=== PATIENT | male | born 1985 | race Caucasian/White ===

== ENCOUNTER → 2020-05-03 15:16 | Outpatient (BNVA) | payer BC, SELFPAY | PROVIDERS: Visit Provider Urology | DX: Z76.89 Persons encountering health services in other specified circumstances (principal) ==

== ENCOUNTER 2024-06-30 09:24 | Outpatient (AMB) | payer BC, SELFPAY ==
--- NOTE | 2024-06-30 09:28 | A.OFFVIS_ITS ---
Intake Visit Reasons: [employer]- tingling/pain in middle of the back Intake Note: Milton is a 39 year old male who presents today for a new patient visit for an evaluation for pain in his mid-back. The patient states the pain started about a couple years. He describes it as nerve pain with a consistent itching feeling. He states he does not remember injuring his back. He states the pain radiates up and down his back, especially on the left side. 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 He has been stretching and working on his posture. States he has tried P.T in the past and it went well. States he takes flexeril as needed. MRI done in the past but he doesn't remember when. Patient referred by Dr Maya from [facility]. Allergies No Known Allergies [No Known Allergies*] Allergy (Unverified 06/30/24 09:30) Medication List - Last Reconciled 06/30/24 by Adela Villarreal RN cyclobenzaprine 10 mg PO BEDTIME HPI Comments Details: Points to mid thoracic pain, tingling/itching/burning sensation, does not remember inciting injury. At least 2 years. Does not radiate in the area, sometimes goes up to shoulder and shoulder blade. Does not think thoracic imaging has been done. He has not done any PT for this pain. Does not think he had rash or shingles related to it. Review of Systems Const All systems reviewed & are unremarkable except as noted in HPI and below Physical Exam Constitutional: Patient appears to be in no acute distress, well nourished and well developed. Patient was appropriately conversant and oriented. Good historian. MSK: Inspection reveals appropriate head and neck positioning. No specific abnormalities found on inspection of the spine and all extremities. No pain with palpation over the cervical, thoracic and lumbar spinous processes or facets. There is some increased sensation, but not tender, on paraspinals, both sides of T6 and T7 level. Cervical and Lumbar ROM was full. No scapular winging. Neurological: Mood appears normal, good affect, and appropriate for the circumstances. Nonfocal. Gait is non-antalgic without loss of balance. Results Reviewed Results Reviewed: I reviewed records from the following: [place] [facility] Assessment & Plan Assessment & Plan (1) Thoracic back pain: Code(s): M54.6 - Pain in thoracic spine Category: Medical Qualifiers: Chronicity: chronic Back pain laterality: midline Qualified Code(s): M54.6 - Pain in thoracic spine; G89.29 - Other chronic pain Plan Suspect chronic paraspinal strain at T6 and T7 levels. 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 Checking thoracic x-rays to do a to rule out chronic fracture or disc space loss. Although low suspicion for these. Assessment and plan discussed with patient, and patient was agreeable. All questions were answered thoroughly. Follow up 2 months or after PT. Hali Lopez MD, ALFONSO Board Certified, [place] [employer] and Rehabilitation (ABPMR) Board Certified, [place] [employer] Electro[employer] (ABEM) Orders: Orders XR thoracic spine 3V Today M54.6 - Pain in thoracic spine PT Evaluation and Treatment Today M54.6 - Pain in thoracic spine Coding Level of Care Code New Pt Level 3 (73551) Diagnoses Chronic midline thoracic back pain M54.6; G89.29 Chronicity: chronic Back pain laterality: midline
--- OUTSIDE RECORDS SUMMARY | 2024-06-30 10:17 | XMS_ITS | Patient Health Record ---
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 Name Role Phone Carmela Don Primary Care Provider Mandy Saunders Unavailable [phone] Allergies Allergen (clinical drug ingredient) Drug/Non Drug Allergy documented on EMR Reaction Allergy Type Onset Date Status Seasonale Unknown Drug Allergy Active Reason For Referral No Information Medications Medication SIG (Take, Route, Frequency, Duration) Notes Start Date End Date Status Medrol 4 MG as directed Orally 12/27/2020 Active Claritin PRN Active Wellbutrin Active Immunizations Vaccine Route Administration Date Status Comme nts COVID-19 Pfizer BioNTech Vaccine Unknown 07/04/2020 Administered Second Dose: 07/25/2020 Social History Tobacco Use: Social History Observation Description Date Details (start date - stop date) Former Smoker NA - NA Tobacco Use/Smoking Question Answer Notes Are you a: former smoker Additional Findings: Tobacco Non-User Current no n-smoker Alcohol Screen Question Answer Notes Did you have a drink containing alcohol in the p ast year? Yes Points 0 Interpretation Negative Tobacco use other than smoking: Question Answer Notes Are you an other tobacco user? No Problems Problem Type SNOMED Code ICD Code Onset Dates Problem Status W/U Status Risk Notes Problem Localized, primary osteoarthritis of the ankle and/or foot (333533161) Primary osteoarthrit is, right ankle and foot (M19.071) Active confirmed Plan Of Treatment Pending Test Test Name Order Date X ray : Foot, right 3V 09/14/2018 X ray : Foot, right 3V 11/15/2019 X ray : Foot, right 3V 12/27/2020 Insurance Providers Payer Name Payer Address Payer Phone Subscriber Number Group Number Insured Name Patient Relationship to Insured Coverage Start Date Coverage End Date [employer] [address] [place] [address] [id number] Milton Kasper Self - patient is the insured Medical (General) History Medical History History ICD Code Back,Hip,and Knee pain Broken bones Surgical History Surgery Date(Month/Year) wisdom teeth removal 2001
--- OUTSIDE RECORDS SUMMARY | 2024-06-30 10:18 | XMS_ITS | Data Portability ---
Author Organization [facility], , [facility] Address [address] [place] [address] Care Team Providers Care Replacer Name Role Phone VALERIE MILLER Primary Care Provider Assessment Encounter Date Assessment Date Assessment LastModified by Organization Details LastModified Time 04/06/2023 04/06/2023 Patient agreed t o this visit via a secure telehealth platform. Patient understands this is a scheduled visit and the usual procedures with regard to billing and confidentiality apply. Patient was notified that the provider location is Patient location: home During the visit the patient? s medical history and medical record were reviewed. The patient was notified to call our office for worsening or urgent symptoms. [email or web address] Not available 04/06/2023 14:53:29 Plan of Treatment Reminders Order Date Submit Date Provider Last Modified By Organization Details Last Modified Time Details Appointments LAB Follow-U p 2024 08:05A M [facility] Lab Not available Not available Not available Wellness Visit 30 2024 10:15A M VALERIE MILLER PA-C Not available Not available Not available Lab lipid panel, serum 2023 024 [facility], [address] [place], [address], 11/22/2023 13:50:40 BMP, serum or plasma 2023 024 [facility], [address] [place], [address], 11/22/2023 13:50:39 Referral physical therapis t referral 2024 025 [facility], [address] [place], [address], 04/27/2024 16:40:31 physical medicine and rehabili tation referral - mid to low back pain, spasms, ongoing. 2023 024 [facility], [address] [place] [address] [place], [address], 11/18/2023 08:25:25 Procedures colonosc opy procedur e (PROC) - requesti pasquale Kaycee Bond ( sees her); Fhx colon cancer (pat GF) [address] [facility], [address] [place], [address], 11/24/2023 09:33:37 Surgeries None recorded . Imaging US, retroper itoneum - urinary urgency 2023 024 [facility] ([facility]), [address] , [place], [address], 11/22/2023 14:36:19 Medication Orders cycloben zaprine 10 mg tablet 2024 025 [id number], [address] [place], [place], [id number], 04/27/2024 08:41:04 valacycl ovir 500 mg tablet [address] [facility], [address] [place], [place], [id number], 04/27/2024 08:09:01 cycloben zaprine 10 mg tablet [address] [facility]77, [address] [place], [place], [id number], 04/27/2024 08:10:20 nicotine (polacri jewel) 4 mg buccal lozenge 2021 022 [facility]23, [address] [place], [place], [id number], 04/21/2022 10:33:11 Patient Targets Encounter Date Encounter Id Patient Goals Patient Target Last Modified By Organization Details Last Modified Time I believe he has a mild case of UT and will observe [email or web address] Not available 04/06/2023 15:43:14 Patient Instructions Encounter Date Encounter Id Patient Instructions Last Modified By Organization Details Last Modified Time 01/08/2022 [id number] deciding about using medicines to quit smoking Not available 01/08/2022 18:28:21 Quitting Tobacco : Care Instructions Not available 01/08/2022 18:28:22 Counseling done {{Patient not ready to quit Contemplating quitting Tapering Cigarettes* signed up for support prescripti on for stop smoking medication given}} {{Patient not ready to quit Contemplating quitting Tapering Cigarettes signed up for support prescripti on for stop smoking medication given}} Goal for follow up visit {{adding exercise regular meals stress management improvi ng sleep therapist identifying sponsor}} {{adding exercise regular meals stress management improvi ng sleep therapist identifying sponsor}} {{adding exercise regular meals stress management improvi ng sleep therapist identifying sponsor}} My Health To Do List {{go to Cortica[employer]BitWall or call sig n up for yoel text 2 quit or other stop smoking yoel contact smokefree.gov}} {{go to [email or web address] or call sig n up for yoel text 2 quit or other stop smoking yoel contact smokefree.gov}} {{go to [email or web address] or call sig n up for yoel text 2 quit or other stop smoking yoel contact smokefree.gov}} Not available 01/10/2022 09:24:21 04/21/2022 [id number] Well Visit, Ages 18 to 65: Care Instructions Not available 04/21/2022 10:49:16 It was a pleasur e to see you today! After a discussion of treatment options, which included consideration of best practices, patient preferences, and the patient? s individual lifestyle and treatment goals, as well as consideration and attempted mitigation of any barriers to meeting the patient? s goals, the following treatment plan and objectives were adopted: - Remember to drink plenty of water (1-2 liters a day), keep moving (30 minutes moderate exercise every day), and eat a diet high in plant materials (fruit, veggies, nuts, and beans), and minimal carbohydrates (starches and sugars) and red meats. Review the website [employer] to get more information on the Mediterranean diet, a heart healthy eating plan. - Maintain 1200 mg of calcium from food sources daily. Vitamin D 800-1000 units daily can help the absorption of calcium into your bones. - Do regular skin checks and wear sun screen for anytime in the sun greater than 10 minutes. - Regular eye and dental exams - Labs: will schedule fasting - Immunizations: UTD - HCP in chart. - PHA in 1 year Not available 04/21/2022 10:58:38 11/15/2023 [id number] It was a pleasur e to see you today! After a discussion of treatment options, which included consideration of best practices, patient preferences, and the patient? s individual lifestyle and treatment goals, as well as consideration and attempted mitigation of any barriers to meeting the patient? s goals, the following treatment plan and objectives were adopted: - Remember to drink plenty of water (1-2 liters a day), keep moving (30 minutes moderate exercise every day), and eat a diet high in plant materials (fruit, veggies, nuts, and beans), and minimal carbohydrates (starches and sugars) and red meats. Review the website [employer] to get more information on the Mediterranean diet, a heart healthy eating plan. - Maintain 1200 mg of calcium from food sources daily. Vitamin D 800-1000 units daily can help the absorption of calcium into your bones. - Do regular skin checks and wear sun screen for anytime in the sun greater than 10 minutes. - Regular eye and dental exams - Labs: as above - Immunizations: reviewed - UTD - HCP in chart. - PHA in 1 year Not available 11/15/2023 12:06:42 Reason for Referral Physical Medicine And Rehabi litation Referral for Low back pain mid to low back pain, spasms, ongoing. Referring Physician: Valerie Maya, Family Medicine, Encounter Date: 11/15/2023 Physical Therapist Referral for Low back pain Referring Physician: Mandy Salinas [facility], Encounter Date: 04/27/2024 Results Created Date Observation Date Name Description Value Unit Range Abnormal Flag Note LastModifiedBy Organization Detail LastModifiedTime 01/16/20 22 01/16/2022 SEMEN VASYL SIS color WHITE, LINDSAY, [facility] white, lindsay, opales cent Not Available [facility] (Outpatient) [address] [place] [address], [address], 01/16/2022 12:45:50 01/16/20 22 01/16/2022 SEMEN VASYL SIS clarity CLOUDY Not Available [facility] (Outpatient) [address] [place], [address], 01/16/2022 12:45:50 01/16/20 22 01/16/2022 SEMEN VASYL SIS sperm agglutinatio n isolat ed: less than 10 sperma tozoa per agglut inate, many free sperma tozoa Not Available [facility] (Outpatient) [address] [place], [address], 01/16/2022 12:45:50 01/16/20 22 01/16/2022 SEMEN VASYL SIS semen viscosity NORMAL normal Not Available [facility] (Outpatient) [address] [place], [address], 01/16/2022 12:45:50 01/16/20 22 01/16/2022 SEMEN VASYL SIS semen pH 8.0 Not Available [facility] (Outpatient) [address] [place] [address], [address], 01/16/2022 12:45:50 01/16/20 22 01/16/2022 SEMEN VASYL SIS sperm concentratio n 253.0 ganesh on/mL 15.0-9 99.0 Not Available [facility] (Outpatient) [address] [place], [address], 01/16/2022 12:45:50 01/16/20 22 01/16/2022 SEMEN VASYL SIS sperm motility 70 % 50-100 Not Available [facility] (Outpatient) [address] [place], [address], 01/16/2022 12:45:50 01/16/20 22 01/16/2022 SEMEN VASYL SIS sperm morphology 8 Paola l refer ence inter staci is great er than or equal to 4%. Morph ology is based on WHO Manua l for Exami natio n and Proce ssing of Human Semen , 5th editi on2009. Not Available [facility] (Outpatient) [address] [place], [address], 01/16/2022 12:45:50 01/16/20 22 01/16/2022 SEMEN VASYL SIS semen container PLASTI C Not Available [facility] (Outpatient) [address] [place], [address], 01/16/2022 12:45:50 01/16/20 22 01/16/2022 SEMEN VASYL SIS days of abstinence 5 days Not Available [facility] (Outpatient) [address] [place], [address], 01/16/2022 12:45:50 01/16/20 22 01/16/2022 SEMEN VASYL SIS collection problems None Not Available [facility] (Outpatient) [address] [place], [address], 01/16/2022 12:45:50 01/16/20 22 01/16/2022 SEMEN VASYL SIS semen volume 2.7 mL 2-6 Not Available [facility] (Outpatient) [address] [place], [address], 01/16/2022 12:45:50 01/16/20 22 01/16/2022 SEMEN VASYL SIS semen transport None Not Available [facility] (Outpatient) [address] [place] [address], [address], 01/16/2022 12:45:50 11/22/19 24 11/22/2023 BASIC METAB OLIC PANEL glucose 97 mg/dL 70-100 Not Available [address], [address], 11/22/2023 13:50:39 11/22/19 24 11/22/2023 BASIC METAB OLIC PANEL BUN 8 mg/dL 7-18 Not Available [address], [address], 11/22/2023 13:50:39 11/22/19 24 11/22/2023 BASIC METAB OLIC PANEL creatinine 0.9 mg/dL 0.8-1. 3 Not Available [address], [address], 11/22/2023 13:50:39 11/22/19 24 11/22/2023 BASIC METAB OLIC PANEL B/C 8.9 ratio Not Available [address], [address], 11/22/2023 13:50:39 11/22/19 24 11/22/2023 BASIC METAB OLIC PANEL GFR >=60ML /MIN mL/mi n normal >=60m L/min - Paola l or midly reduc ed <60mL /min- Decre ased kidne y funct ion <15mL /min - Kidne y failu re [facility] calcu lates estim ated Glome rular Filtr ation Rate (eGFR ) using the Chron ic Kidne y Disea se Epide miolo gy Colla borat ion (CKD- EPI) Equat ion (Marck r et. al 2020) as recom luis d by the Natio nal Kidne y Found ation . eGFR is based on age, serum creat inine , and sex. CKD-E PI does not calcu late eGFR by race, does not apply to child tequila (age <18 years ), and shoul d not be used in pregn shyla. Not Available [address], [address], 11/22/2023 13:50:39 11/22/19 24 11/22/2023 BASIC METAB OLIC PANEL sodium 142 mmol/ L 136-14 5 Not Available [address], [address], 11/22/2023 13:50:39 11/22/19 24 11/22/2023 BASIC METAB OLIC PANEL potassium 5.4 mmol/ L 3.5-5. 1 high Not Available [address], [address], 11/22/2023 13:50:39 11/22/19 24 11/22/2023 BASIC METAB OLIC PANEL chloride 105 mmol/ L 96-107 Not Available [address], [address], 11/22/2023 13:50:39 11/22/19 24 11/22/2023 BASIC METAB OLIC PANEL anion gap 8.0 5.0-15 .0 Not Available [address], [address], 11/22/2023 13:50:39 11/22/19 24 11/22/2023 BASIC METAB OLIC PANEL CO2 29 mmol/ L 21-32 Not Available [address], [address], 11/22/2023 13:50:39 11/22/19 24 11/22/2023 BASIC METAB OLIC PANEL calcium 8.9 mg/dL 8.5-10 .3 Not Available [address], [address], 11/22/2023 13:50:39 11/22/19 24 11/22/2023 LIPID PANEL cholesterol 205 mg/dL <200 mg/dl Malissa able 200-2 39 mg/dl Borde rline High >240 mg/dl High Not Available [address], [address], 11/22/2023 13:50:40 11/22/19 24 11/22/2023 LIPID PANEL triglyceride s 100 mg/dL <150 mg/dL Paola l 150-1 99 mg/dL Borde rline High 200-4 99 mg/dL High >500 mg/dL Very High Not Available [address], [address], 11/22/2023 13:50:40 11/22/19 24 11/22/2023 LIPID PANEL direct HDL 44 mg/dL <40 mg/dl - Major Risk for CHD >60 mg/dl - Negat aquiles Risk for CHD Not Available [address], [address], 11/22/2023 13:50:40 11/22/19 24 11/22/2023 LDL - CALCU LATED LDL - calculated 141.0 RISK CATEG ORY LDL GOAL _ CHD or CHD Risk Equiv alent s <100 mg/dl (10-y ear risk >20%) 2+ Risk Facto rs <130 mg/dl (10-y ear risk <= 20%) 0-1 Risk Facto r? <160 mg/dl ? Almos t all peopl e with 0-1 risk facto r have a 10 year risk <10%, thus 10 year risk asses ment in peopl e with 0-1 risk facto r is not neces matthew. Not Available [address], [address], 11/22/2023 13:50:41 03/08/20 24 03/09/2024 ANATO SLIM PATHO LOGY path report [facility] [address] [place] [address] Lab Direc tor: Chris reed MD Surgi red Patho logy Repor t Acces yoandy #: [id number] FINAL PATHO LOGIC DIAGN OSIS: ASCEN DING COLON , POLYP : Adeno matou s polyp . Roxanna ctron icall y Sylvie d Out By Lumin theodora bullock MD By his/h er signa cayetanoe above , the patho logis t liste d as deysi stanton the Final Diagn osis certi fies that he/sh e has perso latasha revie wed this case and confi rmed or corre cted the diagn osis. 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 DN 03/08 Gross ing Staff : [facility] Patie nt Name: MILTON DAWSON : 1984 (Age: 38) Sex: M 4 Insti tutio n: [facility] Locat ion: [facility] Date of Opera tion: 03/08 Date of Acces yoandy: 03/08 Repor dominic: 03/09 15:05 Resul ts To: Johnny maciel MD [facility] Anya Woods Not Available [facility] (Outpatient) [address] [facility], [place], [address], 03/09/2024 16:13:34 11/22/19 24 11/22/2023 US, retro perit oneum CLINIC AL HISTOR Y: Urgenc y TECHNI QUE: 2D sonogr aphy of the kidney s and bladde r. COMPAR ORLANDO: None. FINDIN GS: Right kidney 4.8 x 10.7 cm The right kidney is normal in echote xture. There are no solid masses , stones , or hydron ephros is. Left kidney 5.7 x 10.7 cm The left kidney is normal in echote xture. There are no solid masses , stones , or hydron ephros is. Ureter al jets are visual ized bilate rally. The bladde r is normal in appear ance. The prevoi d bladde r volume is 471.9 mL. The post void bladde r volume is 16.0 mL. The prosta te gland is 3.6 x 3.4 x 3.6 cm. Measur ement accura cy is limite d by shadow ing. IMPRES YOANDY: 1. Unrema rkable examin ation of the kidney s and bladde r. 2. 16.0 mL postvo id residu al. Readin g Physic lelia: Shanti Birmingham ms [facility]) [address] , [place], [address], 11/28/2023 11:04:55 Result Notes None recorded. Problems Name Problem SNOMED Code Status Onset Date Resolution Date Notes Provider Name and Address Organization Details Recorded Time Sinusiti s 72628664 Completed 02/23/2017 Izabel Hoang NP [address] [place] [address], [phone] , [facility], [place] 7 08:26:49 Allergic rhinitis 98392442 Active 2016 Maribel Montalvo NP [address] [place] [address], [phone] , [facility], [place] 2 18:13:36 Tobacco user 778120054 Completed 201606/10/2021 AGUILAR Mcclain [address] [place] [address], [address] , [facility], [place] 2 15:28:02 Nicotine dependen ce 33237071 Completed 201706/10/2021 AGUILAR Mcclain [address] [place] [address], [address] , [facility], [place] 2 15:28:00 Low back pain 351683726 Active 2021 chronic on/off with sciatica Maribel Montalvo, MARTIN [address] [place], [address] , [facility], [place] 2 18:13:36 Smoker 63189452 Active 2021 Quit 12/22/21, restarte d Feb 2022. AGUILAR Mcclain [address] [place], [address] , [facility], [place] 3 10:42:06 Mild recurren t major depressi on 41203135 Active 2022 AGUILAR Mcclain [address] [place], [address] , [facility], [place] 3 10:40:12 Problem Notes None recorded. Procedures Surgical History Date Name Laterality Status Provider Name and Address Organization Details Recorded Time 04/27/19 Smoking cessation counseling completed AGUILAR Mejia [address] [place] [address], [phone], [facility], [place] 04/27/2024 08:23:31 06/11/19 86292: Therapeutic Exercise completed Irlanda Biggs, PT [address] [place], [address], [facility], [place] 06/11/2020 18:25:35 06/11/19 21 [address]402: Manual Therapy completed Irlanda Biggs, PT [address] [place], [address], [facility], [place] 06/11/2020 18:25:40 05/30/19 21 [address]: Therapeutic Exercise completed Irlanda Biggs, PT [address] [place], [address], [facility], [place] 06/02/2020 13:37:49 05/30/19 21 79045: Manual Therapy completed Irlanda Biggs, PT [address] [place], [address], [facility], [place] 06/02/2020 13:37:54 05/30/19 21 82218: Ultrasound (1:1) completed Irlanda Biggs, PT [address] [place], [address], [facility], [place] 06/02/2020 13:38:08 02/08/20 21 70684: Therapeutic Exercise completed Irlanda Biggs, PT [address] [place], [address], [facility], [place] 05/27/2020 16:35:36 05/27/19 21 03246: Manual Therapy completed Irlanda Biggs, PT [address] [place], [address], [facility], [place] 05/27/2020 16:35:42 05/27/19 21 15448: Ultrasound (1:1) completed Irlanda Biggs, PT [address] [place], [address], [facility], [place] 05/27/2020 16:35:54 05/24/19 21 33634: Therapeutic Exercise completed Irlanda Biggs, PT [address] [place], [address], [facility], [place] 05/24/2020 08:26:48 05/24/19 21 56482: Ultrasound (1:1) completed Irlanda Biggs, PT [address] [place], [address], [facility], [place] 05/24/2020 08:27:02 05/21/19 21 38763: Therapeutic Exercise completed Irlanda Biggs, PT [address] [place], [address], [facility], [place] 05/21/2020 17:01:10 05/21/19 21 34147: Manual Therapy completed Irlanad Biggs, PT [address] [place], [address], [facility], [place] 05/21/2020 17:01:16 05/21/19 21 14247: Ultrasound (1:1) completed Irlanda Bgigs, PT [address] [place], [address], [facility], [place] 05/21/2020 17:01:26 05/16/19 21 45301: Therapeutic Exercise completed Irlanda Biggs, PT [address] [place], [address], [facility], [place] 05/17/2020 16:38:42 05/16/19 21 68744: Manual Therapy completed Irlanda Biggs, PT [address] [place], [address], [facility] 05/17/2020 16:38:48 05/16/19 90583: Ultrasound (1:1) completed Irlanda Biggs, PT [address] [place], [address], [facility] 05/17/2020 16:39:00 05/14/19 [address]32: Therapeutic Exercise completed Irlanda Biggs, PT [address] [place], [address], [facility] 05/15/2020 13:10:21 05/14/19 11107: Manual Therapy completed Irlanda Biggs, PT [address] [place], [address], [facility], [place] 05/15/2020 13:10:36 05/14/19 40222: Ultrasound (1:1) completed Irlanda Biggs, PT [address] [place], [address], [facility], [place] 05/15/2020 13:10:56 05/08/19 80013: Therapeutic Exercise completed Irlanda Biggs, PT [address] [place], [address], [facility], [place] 05/08/2020 09:07:25 05/08/19 86309: Manual Therapy completed Irlanda Biggs, PT [address] [place], [address], [facility], [place] 05/08/2020 09:07:32 05/08/19 27817: Ultrasound (1:1) completed Irlanda Biggs, PT [address] [place], [address], [facility], [place] 05/08/2020 09:07:46 05/06/19 64692: Therapeutic Exercise completed Irlanda Biggs, PT [address] [place], [address], [facility], [place] 05/12/2020 12:48:01 05/06/19 25115: Manual Therapy completed Irlanda Biggs, PT [address] [place], [address], [facility], [place] 05/12/2020 12:48:16 05/06/19 21 29786: Ultrasound (1:1) completed Irlanda Biggs, PT [address] [place], [address], [facility], [place] 05/12/2020 12:48:31 05/03/19 21 Physical Activity Counselling completed Irlanda Biggs, PT [address] [place], [address], [facility], [place] 05/03/2020 10:57:10 05/03/19 21 80989: PT Eval Low Complexity completed Irlanda Biggs, PT [address] [place], [address], [facility], [place] 05/03/2020 10:57:05 04/27/19 20 Smoking cessation counseling completed Eleanor Astudillo NP [address] [place], [address], [facility], [place] 04/27/2019 13:49:08 04/27/19 20 Carbon Monoxide Testing completed Timbo Mason [facility] 04/27/2019 13:37:07 10/12/19 19 Smoking cessation counseling completed Ayde Estrada [facility] 10/11/2018 11:24:30 02/24/20 17 Smoking cessation counseling completed Eleanor Reeves [facility] 02/23/2017 07:49:07 04/22/19 17 Smoking cessation counseling completed Leighann Guzman [facility] 04/22/2016 08:01:20 04/22/19 17 POC Flu Testing completed Leighann Guzman [facility] 04/22/2016 08:11:34 07/11/19 15 Smoking cessation counseling completed Tonie Collins [facility] 07/10/2014 15:17:24 06/24/19 15 Mood Disorder Questionnaire (MDQ) completed Mulugeta Corcoran MD [address] [place], [address], [facility], [place] 06/23/2014 14:03:48 Imaging Results Imaging Date Name Status LastModified by Organization Details LastModified Time 11/22/2023 US, retroperitoneum completed [facility] [address], [place], [address], 11/28/2023 11:04:55 Procedure Notes None recorded. Medical Equipment None Reported. Allergies No known drug allergies Medications Name Sig Start Date Stop Date Status Note LastModified by Organization Details LastModified Time cyclobenz aprine 10 mg tablet Take 1 tablet every day by oral route at bedtime. active Not Available Not Available No t Available amoxicill in 500 mg capsule TAKE ONE CAPSULE BY MOUTH 3 TIMES A DAY active Not Available Not Available No t Available methocarb yesi 500 mg tablet TAKE 1 TABLET BY MOUTH 2 TIMES A DAY NEEDED FOR PAIN AND MUSCLE TIGHTNES S 04/27 completed Pt not taking 04/27/24 MW Not Available Not Available Not Available bupropion HCl SR 150 mg tablet,12 hr sustained -release TAKE 1 TABLET DAILY FOR 3 DAYS THEN INCREASE TO 1 TABLET BY MOUTH TWICE DAILY 06/16 completed not taking 06/10/21 sf, not taking 06/16/21 [place] Not Available Not Available Not Available trazodone 50 mg tablet TAKE 1 TABLET BY MOUTH EVERY DAY NEEDED active Not Available Not Available No t Available nicotine (polacril ex) 2 mg gum CHEW 1 PIECE(S) OF GUM EVERY 2 HOURS BY ORAL ROUTE. 04/27 completed Not currentl y using 10/11/18 Not Available Not Available Not Available prednison e 20 mg tablet TAKE 2 TABLETS BY MOUTH DAILY FOR 5 DAYS. TAKE FIRST THING IN THE MORNING WITH FOOD. 04/27 completed PT not taking MW Not Available Not Available Not Available valacyclo vir 500 mg tablet TAKE 1 TABLET BY MOUTH EVERY DAY active PRn Not Available Not Available No t Available ciproflox acin 500 mg tablet TAKE 1 TABLET BY MOUTH EVERY 12 HOURS FOR 10 DAYS active Not Available Not Available No t Available oxycodone -acetamin ophen 5 mg-325 mg tablet active Not Available Not Available Not Available alprazola m 0.25 mg tablet Take 1 tablet every day by oral route for 10 days. 11/03 completed no longer taking Not Available Not Available Not Available gabapenti n 300 mg capsule TAKE 1 CAPSULE BY MOUTH EVERY DAY AT BEDTIME 04/21 completed not taking 01/08/22 ds,not using 04/21/22 ashutosh Not Available Not Available Not Available Iophen C-NR 10 mg-100 mg/5 mL oral liquid 11/03 completed no longer taking Not Available Not Available Not Available Transderm -Scop 1 mg over 3 days transderm al patch APPLY 1 PATCH EVERY 72 HOURS FOR 9 DAYS. active Not Available Not Available No t Available lorazepam 1 mg tablet active Not Available Not Available Not Available methylpre dnisolone 4 mg tablets in a dose pack TAKE 6 TABLETS ON DAY 1 DIRECTED ON PACKAGE AND DECREASE BY 1 TAB EACH DAY FOR A TOTAL OF 6 DAYS 06/10 completed Not Available Not Available Not Available sertralin e 50 mg tablet TAKE 1 TABLET BY MOUTH EVERY DAY 11/03 completed no longer taking Not Available Not Available Not Available sulindac 200 mg tablet Take by oral route as needed for 30 days. 04/27 completed PRN- not currentl y using 10/11/18 Not Available Not Available Not Available naproxen 500 mg tablet TAKE 1 TABLET TWICE A DAY active Not Available Not Available No t Available diazepam 5 mg tablet TAKE 1 TABLET 3 TIMES A DAY active Not Available Not Available No t Available Ventolin HFA 90 mcg/actua tion aerosol inhaler 11/03 completed no longer taking Not Available Not Available Not Available oxycodone 5 mg tablet TAKE 1 TO 2 TABLETS 3 TIMES A DAY NEEDED FOR PAIN active Not Available Not Available No t Available Laxative (bisacody l) 5 mg tablet TAKE 4 TABLETS BY MOUTH DIRECTED 04/27 completed PT not taking 04/27/24 MW Not Available Not Available Not Available nicotine (polacril ex) 4 mg buccal lozenge DISSOLVE 1 LOZENGE BY MOUTH EVERY 2 HOURS NEEDED active Not Available Not Available No t Available cyclobenz aprine 5 mg tablet TAKE 1/2 TO 2 TABLETS BY MOUTH AT BEDTIME NEEDED FOR MUSCLE SPASMS 04/21 completed Not Available Not Available Not Available Buproban 150 mg tablet,ex tended release TAKE 1 TABLET BY MOUTH TWICE A DAY 11/03 completed no longer taking Not Available Not Available Not Available Chantix Continuin g Month Reyes 1 mg tablet Take 1 tablet twice a day by oral route for 28 days. 2013 active Not Available Not Available Not Avai lable GaviLyte- G 236 gram-22.7 4 gram-6.74 gram-5.86 gram oral solution MIX AND DRINK DIRECTED 04/27 completed PT not taking 04/27/24 MW Not Available Not Available Not Available Chantix Starting Month Box 0.5 mg (11)-1 mg (42) tablets in dose pack Take by oral route as directed on package. active Not Available Not Available No t Available nicotine (polacril ex) 4 mg buccal mini lozenge DISSOLVE 1 LOZENGE BY MOUTH EVERY 2 HOURS NEEDED active Not Available Not Available No t Available Fluzone Quad (PF) 60 mcg (15 mcg x 4)/0.5 mL IM syringe PHARMACY ADMINIST ERED 06/16 completed Not Available Not Available Not Available BinaxNOW COVID-19 Ag Self Test kit TEST DIRECTED TODAY 04/27 completed Not Available Not Available Not Available Vitals Date Recorded Body height Body mass index (BMI) Body weight Heart rate Systolic blood pressure Diastolic blood pressure Provider Name and Address Organization Details Last Updated DateTime 2 177.8 cm 28.4 kg/m2 16876.2 9 g 48 /min 118 mm[Hg] 65 mm[Hg] Nadia Lay [facility] 2 17:54:39 Date Recorded Body height Body mass index (BMI) Body weight Heart rate Systolic blood pressure Diastolic blood pressure Provider Name and Address Organization Details Last Updated DateTime 3 177.8 cm 29 kg/m2 90517.6 6 g 58 /min 123 mm[Hg] 60 mm[Hg] Lindsey Rangel [facility] 3 10:29:49 Date Recorded Body height Body mass index (BMI) Body weight Heart rate Provider Name and Address Organization Details Last Updated DateTime 04/06/2023 177.8 cm 29.4 kg/m2 15142.44 g 72 /min Eleanor rodriguez, [facility] 04/06/2023 15:18:17 Date Recorded Body height Body mass index (BMI) Body weight Heart rate Systolic blood pressure Diastolic blood pressure Provider Name and Address Organization Details Last Updated DateTime 4 177.8 cm 25.6 kg/m2 26812.5 4 g 52 /min 113 mm[Hg] 60 mm[Hg] Melissa Cantu CMA [facility] 4 11:23:37 Date Recorded Body height Heart rate Body temperature Systolic blood pressure Diastolic blood pressure Provider Name and Address Organization Details Last Updated DateTime 04/27/2024 177.8 cm 58 /min 97.9 [degF] 106 mm[Hg] 62 mm[Hg] Marielle Keating MA [facility] 5 08:12:47 Social History Question Answer Notes LastModified by Organizat ion Details LastModified Time Tobacco Smoking Status Current Every Day Smoker down to <1ppd quit 12/21/21; back up to periodic use . never full cig at a time. 7/8 cigs daily 04/27/24 JAYLA Keating MA [facility], [facility] 04/27/2024 08:11:08 What Is Your Level Of Alcohol Consumption? Moderate Information not available 08/23/2012 Do You Wear A Helmet When Biking? Yes Information not available 10/06/2017 What Is Your Level Of Caffeine Consumption? Heavy 20oz Of Coffee QD Information not available 08/23/2012 How Much Tobacco Do You Chew? None Information not available 08/23/2012 What Type Of Diet Are You Following? REGULAR Information not available 08/23/2012 Which Illicit Or Recreational Drugs Have You Used? MJ Information not available 10/17/2020 Do You Or Have You Ever Used E-cigarettes Or Vape? Former User Of Electronic Cigarettes Information not available 04/18/2020 Education 2 Year College Recording [employer] Information not available 08/23/2012 What Is Your Occupation? [employer] Information not available 09/19/2020 Are There Any Guns Present In Your Home? No Information not available 10/06/2017 Live Alone Or With Others? With Others Lives With Information not available 08/23/2012 Patient Has Health Care Proxy Signed And In Chart Yes [email or web address] Information not available 03/31/2018 Marital Status Sally Informatio n not available 08/23/2012 Mosquito Repellent Used Routinely No Information not available 10/06/2017 What Was The Date Of Your Most Recent Tobacco Screening? 11/15/2023 [email or web address] Information not available 11/15/2023 How Many Children Do You Have? 0 Information not available 08/23/2012 What Is Your Current Pack Years? [email or web address] Information not available 02/23/2017 What Is Your Relationship Status? Information not available 04/21/2022 Do You Use Your Seat Belt Or Car Seat Routinely? Yes [email or web address] Information not available 04/21/2022 Seat Belts Used Routinely Yes Information not available 10/06/2017 Are You Sexually Active? Yes Information not available 06/28/2013 Smoke Alarm In Home Yes Information not available 10/06/2017 Do You Have Smoke And Carbon Monoxide Detectors In Your Home? Yes [email or web address] Information not available 04/21/2022 At What Age Did You Start Smoking Tobacco? 14 Y/o Information not available 08/23/2012 Are You Passively Exposed To Smoke? No [email or web address] Information not available 04/21/2022 How Much Tobacco Do You Smoke? 0.5 PPD Started Back Up In Nov [email or web address] Information not available 04/21/2022 General Stress Level Medium Information not available 08/23/2012 Do You Use Sunscreen Routinely? Yes Information not available 10/06/2017 Do You Or Have You Ever Used Any Other Forms Of Tobacco Or Nicotine? No Information not available 04/06/2023 Sex: Male Functional Status Question Answer Note LastModified by Organizat ion Details LastModified Time What is your exercise level? Occasional [email or web address] Information not available 04/21/2022 Mental Status None recorded. Family History Relationship Description Onset Age of this Age Resolved Age Notes LastModified by Organization Details LastModified Time Mother Well adult Not availabl e 08/01/2014 14:05:05 Mother Deep venous thrombosis Not available 11/14 11:29:28 Father Malignant tumor of prostate 58 [email or web address] Not available 2014 14:05:05 Father Malignant tumor of lung 66 d lung ca Not available 10/06/2017 09:16:41 Paternal Grandfather Diabetes mellitus ? [email or web address] Not available 2014 14:05:05 Paternal Grandfather Malignant tumor of colon Not available 2023 11:45:30 Brother Aneurysm Cerebr al- a/w +9 Not available 10/06/2017 09:18:01 Notes:1 bro No MIs Medical History No medical history recorded. Immunizations Vaccine Type Date Status Note Provider Nam e and Address Organization Details Recorded Time Influenza, split virus, trivalent, PF 4 completed Not Available [facility] 05/06/2019 02:26:06 Tdap 4 completed Not Available [facility] 05/06/2019 02:16:09 Influenza, split virus, quadrivalent, PF 7 completed Not Available [facility] 05/06/2019 02:22:06 Influenza, split virus, quadrivalent, PF 9 completed Not Available [facility] 05/06/2019 02:36:22 Influenza, split virus, quadrivalent, preservative 0 completed [facility] 02/15/2020 09:23:52 COVID-19, mRNA, LNP-S, PF, 30 mcg/0.3 mL dose 1 completed Lindsey Rangel MA [facility] 10/17/2020 11:22:45 COVID-19, mRNA, LNP-S, PF, 30 mcg/0.3 mL dose 1 completed Lindsey Rangel MA [facility] 10/17/2020 11:23:07 COVID-19, mRNA, LNP-S, PF, 30 mcg/0.3 mL dose 1 completed Nadia Lay CMA null, [facility] 01/08/2022 17:51:18 COVID-19, mRNA, LNP-S, PF, 30 mcg/0.3 mL dose 2 completed Nadia Lay [employer] [facility] 01/08/2022 17:51:35 Influenza, split virus, quadrivalent, preservative 2 completed Nadia Lay CMA [facility] 01/08/2022 17:52:47 Past Encounters Encounter ID Performer Location Encounter Start Date Encounter Closed Date Diagnosis/Indication Diagnosis SNOMED-CT Code Diagnosis ICD10 Code Diagnosis Note [id number] ISELA Villar, [facility], OFFICE [address] [place] [id number] 6 08/23/2012 15:12:01 08/23/2012 16:00:13 [id number] , [facility], OFFICE [address] [place] [phone] 6 06/28/2013 15:49:36 06/28/2013 16:27:22 Adult health examination 859158993 see Risk Assessment and Lifestyle Change Counseling section above Counseling [id number] JANET Arndt, [facility], OFFICE [address] [place] [id number] 6 10/03/2013 13:29:33 10/03/2013 14:04:21 Inflammation of sacroiliac joint 18021092 Tobacco de pendence, continuous 816531554 Male pattern alopecia 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 [id number] JAYDA Jensen [facility], OFFICE [address] [place] [address] [id number] 6 12/27/2013 10:00:03 12/27/2013 10:40:49 Depressive disorder 24604017 Anxiety 28664246 Insomnia 472367304 [id number] ISELA Villar [facility], OFFICE [address] [place] [id number] 6 03/08/2014 11:20:37 03/08/2014 11:51:53 Anxiety 98487078 Depressive disorder 40605850 Insomnia 250711284 Influenza vaccine needed 2507833707 106 Administra tion of diphtheria, pertussis, and tetanus vaccine 451679751 [id number] JAYDA Jensen, [facility], OFFICE [address] [place] [id number] 6 04/24/2014 11:37:19 04/24/2014 12:15:16 Motion sickness 99374017 Tobacco de pendence syndrome 63055266 Anxiety 16241536 [id number] Tonie Collins CMA , [facility], OFF[address] [place] [address] 05/18/2014 07:55:27 05/18/2014 08:36:33 Epididymitis 52395903 [id number] Jyotsna Hu MA , [facility], OFF[address] [place] [address] 06/07/2014 08:56:29 06/07/2014 09:33:37 Low back pain 302311025 with radiation to mid back [id number] Mulugeta Corcoran MD , [facility], OFFICE [address] [place] [address] 06/23/2014 13:34:15 06/23/2014 15:51:25 Panic attack 131086348 pt wanted soething if panic returns, discussed need for therapy and he has an appt, wellbutrin may not be best med if feeling anxious , kiet discuss with pcp, discussed breathing exercises and relaxation exercises, needs regualr exercise, regualr sleep and to stop drining, given 10 xnax to use if need daily. [id number] Pao Mckeon NP , [facility], OFF[address] [place] [address] 07/10/2014 14:40:30 07/10/2014 15:34:47 Acute upper respiratory infection 84010230 Educated patient that URI is a viral illness of the upper airways. It is not bacterial and does not benefit from antibiotic s. Average duration of URI is 7-10 days but in a recent trial, treatment at 7-10 days of illness with antibiotic s, intranasal steroids, or placebo did not alter natural history at 3 weeks. Recommende d symptomati c treatments including NSAIDS, semi-uprig ht sleep position, antihistam perla at HS, limited course of nasal sympathomi metics and/or cough syrups, and nasal saline rinses with soft squeeze bottle or Neti pot. Return for fevers > 101 for 3 days, worsening sinus pain, or failure to resolve in 2-4 weeks. Tobacco user [id number] , [facility], OFF[address] [place] [address] 08/01/2014 13:41:48 08/01/2014 14:22:48 Adult health examination 205515016 see Risk Assessment and Lifestyle Change Counseling section above Counseling 280220559 Depressive disorder 40979230 Tobacco de pendence, continuous 452415144 [id number] Mandy Gaspar , [facility], OFF[address] [place] [address] 04/22/2016 07:58:10 04/22/2016 08:40:28 Acute upper respiratory infection 91385312 J06.9 Educated patient that URI is a viral illness of the upper airways. It is not bacterial and does not benefit from antibiotic s. Average duration of URI is 7-10 days but in a recent trial, treatment at 7-10 days of illness with antibiotic s, intranasal steroids, or placebo did not alter natural history at 3 weeks. Recommende d symptomati c treatments including NSAIDS, semi-uprig ht sleep position, antihistam perla at HS, limited course of nasal sympathomi metics and/or cough syrups, and nasal saline rinses with soft squeeze bottle or Neti pot. Return for fevers > 101 for 3 days, worsening sinus pain, or failure to resolve in 2-4 weeks. Cigarette smoker 7719398 7 F17.210 -start taking 1 tablet for 6-8 days at nighttime then increase to twice per day-can use the nicotine gum if needed for oral fixation-f ollow up in 1 month for evaluation Tobacco user 072755282 Z 72.0 Influenza 9780515 J11.1 -Ibuprofen every 6 hours with food, tylenol in between for breakthrou gh fevers-pus h fluids-hum idifier-re st-wash hands-star t taking 1 tablet for 6-8 days at nighttime then increase to twice per day -can use the nicotine gum if needed for oral fixation -follow up in 1 month for evaluation [id number] LUIS Reyes , [facility], OFF[address] [place] [address] 11/03/2016 09:30:44 11/03/2016 10:14:18 Numbness 59920902 R20.0 seems aresult of muscular lower back impingemen t. Could be related to deeper back issues. start with exercises, massage. follow up if it worsens. [id number] Izabel Hoang, MARTIN , [facility], OFFICE [address] [place] [id number] 02/23/2017 07:47:32 02/23/2017 08:16:02 Cigarette smoker 79269192 F17.210 not ready to quit at this time. will consider Rx when this semster of school is over Tobacco user 733290492 Z 72.0 Active or passive immunization 107015572 Z23 Testicular mass 24440551 N50.89 right, will get u/s Allergic rhinitis 241496 04 J30.9 will try OTC claritin or nasal steroid spray [id number] Smitha Chen PA-C , [facility], OFFICE [address] [place] [id number] 6 08/02/2017 10:25:43 08/02/2017 10:49:43 Lateral epicondylitis 680140031 M77.12 - continue to rest elbow and wrist as much as able, avoid heavy lifting- continue with sulindac, can take tylenol if needed- ice to the elbow [id number] Maribel Montalvo NP , [facility], OFFICE [address] [place] [id number] 6 10/06/2017 08:27:23 10/06/2017 09:44:53 Adult health examination 243448763 Z00.00 see Risk Assessment and Lifestyle Change Counseling section above Counseling 625691432 Z71 .9 Depression screening 171 212724 Z13.89 depression screening tool administer ed, entered into emr, scored and discussed, time greater than 7.5 minutes Nicotine dependence 5629 4008 F17.200 Antibody measurement 352 7003 Z01.84 Tuberculos is screening 688962149 Z11.1 [id number] Margi Bianchi MD FP, [facility], OFFICE [address] [place] [id number] 6 10/11/2018 11:19:32 10/11/2018 12:12:57 Adult health examination 781321023 Z00.00 see Risk Assessment and Lifestyle Change Counseling section above Counseling 018398158 Z71 .9 Depression screening 171 009767 Z13.89 depression screening tool administer ed, entered into emr, scored and discussed, time greater than 7.5 minutes Cigarette smoker 7385065 7 F17.210 Tobacco user 756701017 Z 72.0 Nicotine dependence 5629 4008 F17.258 [id number] Ayde Marmolejo RN , [facility], OFFICE [address] [place] [id number] 6 01/10/2019 11:34:17 01/11/2019 16:03:12 Active or passive immunization 547060699 Z23 [id number] Mandy Gaspar , [facility], OFFICE [address] [place] [address] [id number] 6 04/27/2019 13:29:45 04/27/2019 13:57:56 Nicotine dependence 84575701 F17.200 Patient is interested in quitting smoking at this time.Wilmer moreno quit Works program.Nayak quitters win program.Aguilar segura would like nicotine replacemen t at this time. Skin lesion 46291777 L98 .9 0.2 cm round elevated purple lip lesion-pos sible venous espinosa lesionMost likely benign however can not rule out malignancy WIll refer to derm for assessment and treatment [id number] MD GREGORIA Cosby, [facility], OFFICE [address] [place] [address] 11/07/2019 12:04:18 11/08/2019 11:02:25 Pain of toe of left foot 6760425948 86018 M79.675 - pt with significan t distal 5th phalanx pain/tende rness s/p injury last night, some tenderness overlying head of 5th metatarsal on exam- x-rays ordered, [facility] xray closed today, pt will call and schedule at [facility]- discussed tx options including budding-ta ping versus possible ortho referral or f/u with podiatry (pt schedule for podiatry visit tomorrow already)- recommende d ice as tolerated (20min on, 20 min off a few times per day)- can alternate tylenol/ib uprofen for pain, scheduled few a few days then as tolerated- call for worsening symptoms [id number] Mandy Gaspar , [facility], OFF[address] [place] [address] 04/18/2020 13:30:14 04/22/2020 12:55:55 Pain of left testicle 2877260753 3179049 N50.812 - waxing/wan ing left testicular pain and edema, currently asymptomat ic - US, UA, GC/chlamyd ia all WNL in Nov for similar symptoms, will defer for now - pt to f/u with urology, new referral sent to Dr. Griffin in [place] per pt request - monitor for any new symptoms in the interim and call as needed, discussed could always get labs and new US if recurrent and persistent [id number] Margi Bianchi MD , [facility], OFFICE [address] [place] [id number] 6 04/30/2020 10:52:14 04/30/2020 14:02:45 Epicondylitis 58960789 M77.8 - worsening bilateral radiating UE pains, suspect lateral vs medial epicondyli tis from overuse - pt interested in pursuing PT, referral sent - in the interim continue conservati ve measures: rest, ice/heat 20min on/off, alternativ e tylenol/ib uprofen prn, gentle stretching exercises as tolerated; compressio n sleeves prn, wrist braces (bilateral ) at night - discussed sports med eval if persistent [id number] Irlanda Biggs, PT Physical Therapy, [address] [address] 05/03/2020 08:42:17 05/06/2020 07:34:15 Pain in elbow 47477490 M25.813 [id number] Irlanda Biggs, PT Physical Therapy, [address] [address] 05/06/2020 07:21:40 05/13/2020 07:56:11 Pain in elbow 52239231 M25.803 [id number] Irlanda Biggs, PT Physical Therapy, [address] [address] 05/08/2020 08:16:54 05/08/2020 09:08:43 Pain in elbow 92670562 M25.118 [id number] Irlanda Biggs, PT Physical Therapy, [address] [address] 05/14/2020 15:24:00 05/15/2020 13:58:27 Pain in elbow 63047217 M25.837 [id number] Irlanda Biggs, PT Physical Therapy, [address] [address] 6 05/16/2020 14:44:16 05/20/2020 07:48:43 Pain in elbow 45724150 M25.997 [id number] Irlanda Biggs, PT Physical Therapy, [address] [address] 6 05/21/2020 15:55:05 05/22/2020 07:31:32 Pain in elbow 03519960 M25.173 [id number] Irlanda Biggs, PT Physical Therapy, [address] [address] 6 05/24/2020 07:40:11 05/24/2020 08:34:25 Pain in elbow 32401913 M25.602 [id number] Irlanda Biggs, PT Physical Therapy, [address] [address] 6 05/27/2020 15:34:14 05/28/2020 07:36:51 Pain in elbow 77601944 M25.977 [id number] Irlanda Biggs, PT Physical Therapy, [address] [address] 6 05/30/2020 14:54:01 06/03/2020 07:52:34 Pain in elbow 46897145 M25.514 [id number] Irlanda Biggs, PT Physical Therapy, [address] [address] 6 06/11/2020 15:55:11 06/12/2020 07:32:45 Pain in elbow 09346562 M25.879 [id number] Margi Bianchi MD , [facility], [address] [address] 09/19/2020 14:00:40 09/19/2020 14:36:09 Cigarette smoker 38974147 F17.210 Tobacco user 053440921 Z 72.0 Nicotine dependence 5629 4008 F17.200 - will restart wellbutrin , med risks/bene fits/side effects reviewed - work on stress reduction, consider therapy - the detrimenta l side effects of smoking was/have been discussed, the [facility] smoking services/o utpatient services were/have been discussed today. Patient knows that we are here to help and knows when to contact us if they decide to quit, also knows they can contact Timothy Tolbert or us whenever they are ready or have questions and/or if they are in contact already with him or a quitting resource. [id number] Margi Bianchi MD , [facility], OFFICE [address] [place] [address] 10/17/2020 11:17:18 10/17/2020 12:01:24 Adult health examination 524178213 Z00.00 Counseling 528842094 Z71 .9 Depression screening 171 649452 Z13.31 depression screening tool administer ed, entered into emr, scored and discussed, time greater than 7.5 minutes. Screening for alcohol abuse 784901912 Z13.39 An audit alcohol screening test was performed and scored. Patient was asked about alcohol use, advised about risks of alcohol, and personal risk was assessed, patient agreed to plan and given informatio n about available resources if needed. Discussion including screening and scoring greater than 7.5 minutes Screening for disorder 830768673 Z11.59 routine screening for USPSTF guidelines for patient over 18 years old Overweight 577686418 E66 .3 interested in routine blood work, will get fastinglas t cholestero l 2014 and WNL Tobacco user 474035676 Z 72.0 Cigarette smoker 4671409 7 F17.210 down to <1ppd! 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 of condition discussedh e will need several more days off workwould increase his motrin to be 600 TIDrest and timePT when ablehe was accepting of slow course to heal on ownemploye r understand ing [id number] Mandy Gaspar , [facility], OFF[address] [place] [address] 06/10/2021 15:05:26 06/11/2021 10:44:10 Sciatica 29161676 M54.30 as above Low back pain 373267743 M54.50 acute on chronic with sciatica bilaterall ywill start PTdiscusse d prednisone burst and muscle relaxer to help in the interim; New medication was discussed today with patient including risks, benefits, possible and expected side effects. Patient understand s and is willing to begin medication as prescribed .call with any new/worsen ing symptoms [id number] Mandy Gaspar , [facility], OFF[address] [place] [address] 06/16/2021 15:03:39 06/16/2021 15:46:30 Low back pain 604592910 M54.50 Acute on chronicHas PT planned, pt will contact the office if he can be seen sooner elsewhereW ill get xray and start Gabapentin New medication was discussed today with patient including risks, benefits, possible and expected side effects. Patient understand s and is willing to begin medication as prescribed .Informed not to take with muscle relaxerRef erral to PS&S as wellPt to contact the office for any worsening symptoms Cigarette smoker [id number] F17.210 Unable to cut back at this time, has tried wellbutrin and lozenges in the past Tobacco user [id number] Z 72.0 [id number] MD GREGORIA Fisher, [facility], OFFICE [address] [place] [address] 01/08/2022 17:30:40 01/09/2022 10:00:45 Active or passive immunization [id number] Z23 flu: had already Tobacco user [id number] Z 72.0 Neck pain 90281435 M54.2 New medication was discussed today with patient including risks, benefits ,possible and expected side effects. Patient understand s and is willing to begin medication as prescribed . YOUR PAIN IS MOST LIKELY MUSCULOSKE LETAL -Rest- heat multiple times daily as needed-Use Motrin 600 mg as needed daily, can take every 8 hours as needed. Take it w food. Can cause stomach upset or heart issues in susceptibl e patients. -Call with any worsening pain or concerns [id number] Margi Bianchi MD , [facility], OFFICE [address] [place] [address] 04/21/2022 10:17:40 04/22/2022 15:51:32 Adult health examination [id number] Z00.00 Counseling [id number] Z71 .9 Depression screening 171 695766 Z13.31 depression screening tool administer ed, entered into emr, scored and discussed, time greater than 7.5 minutes. as below. Screening for alcohol abuse [id number] Z13.39 An audit alcohol screening test was performed and scored. Patient was asked about alcohol use, advised about risks of alcohol, and personal risk was assessed, patient agreed to plan and given informatio n about available resources if needed. Discussion including screening and scoring greater than 7.5 minutes Low back pain [id number] M54.50 chronic w/ intermitte nt sciaticare lief with flexeril as neededno acute concerns Mild recur rent major depression [id number] F33.0 recently started therapy virtually - going well so far Overweight 722443190 E66 .3 recheck annual labs as belowworki ng on healthier eating and getting into an exercise routine Family his tory of cancer of colon 776233387 Z80.0 + Fhx grandfathe r in his 60sdiscuss ed screening guidelines , will start at age 40 Cholesterol screening 27 1800404 Z13.220 annual labs Oral herpe s simplex infection 598989041 B00.2 hx oral and genital outbreaksn o acute outbreak but would like preventati ve therapy as he and his are trying to conceiveca ll as needed Pain of le ft elbow joint [id number] 5396740 M25.522 will call if interested in restarting PT Tobacco user [id number] Z 72.0 back up to 1/2 ppd, plans to work on quitting againdecli josh NRT at this time but aware of his options if he changes his mind [id number] Quinton Montgomery MD FP, [facility], OFFICE [address] [place] [address] 04/06/2023 15:16:01 04/06/2023 21:14:44 Upper respiratory infection 34402986 J06.9 Patient presents with symptoms consistent with viral infection. No evidence of pneumonia on exam. Discussed supportive care: pushing fluids, rest, nasal saline and Mucinex as needed. Encouraged to follow up if symptoms persist for more then 10 days or if they are worsening. Discussed natural course of viral illnesses and lack of evidence for treating with antibiotic s. Pityriasis rosea [id number] L42 [id number] Imer Kemp MD , [facility], OFFICE [address] [place] [address] 11/15/2023 11:10:41 11/15/2023 12:13:45 Adult health examination 201226830 Z00.00 Depression screening 171 291161 Z13.31 depression screening tool administer ed. no acute concerns. continues with therapy Screening for alcohol abuse 621285941 Z13.39 Alcohol use screening tool administer ed. use discussed. Nicotine dependence 5629 4008 F17.200 We discussed your smoking/va ping today for more than 3 minutes.Sm oking tobacco is the leading cause of preventabl e disease, disability , and in the [place]. Inhaling aerosolize d nicotine is widely believed to be safer than combustibl e tobacco, but still exposes people to numerous harmful substances , heavy metals like lead, and cancer-cau sing agents. Nicotine is harmful to developing brains and can disrupt the formation of brain circuits that control attention, learning, and susceptibi lity to addiction. We talked about tools and medication s available to help you in smoking/va ping cessation. 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 Mild recur rent major depression 35805344 F33.0 therapy going well overall, continues biweekly Urgent carl rocio to urinate 73020713 R39.15 lifelong concernwil l obtain US to further evalreview ed bladder irritants/ sensitivit ies including coffee, citrus Low back pain 271154685 M54.50 chronic w/ intermitte nt sciaticare lief with flexeril as neededwoul d like to f/u with physiatry for consult, referral placed Screening for malignant neoplasm of colon 161099088 Z12.11 Referral for a DIRECT booked colonoscop y. This patient is a healthy ASA Class 1 or 2 patient (only mild systemic disease), or a STABLE, well controlled insulin dependent diabetic. They do not have serious cardiac disease ie HI/angiopl asty within 1 year, symptomati c CHF; renal failure with CKD 4 or 5; take Coumadin, Plavix, Aggrenox, etc. Hyperlipidemia 55020879 E78.5 mildly elevated 2021rechec k labs fasting [id number] Mandy Gaspar , [facility], OFFICE [address] [place] [address] 04/27/2024 08:03:00 04/27/2024 08:42:32 Nicotine dependence 76813442 F17.200 We discussed your smoking/va ping today for more than 3 minutes.Sm oking tobacco is the leading cause of preventabl e disease, disability , and in the [place]. Inhaling aerosolize d nicotine is widely believed to be safer than combustibl e tobacco, but still exposes people to numerous harmful substances , heavy metals like lead, and cancer-cau sing agents. Nicotine is harmful to developing brains and can disrupt the formation of brain circuits that control attention, learning, and susceptibi lity to addiction. We talked about tools and medication s available to help you in smoking/va ping cessation. Your personal goal: Continue to work on cutting back, let us know if you need any refills for the nicotine lozenges Low back pain [id number] M54.50 Acute on chronic, will continue Cyclobenza priscilla at night and Ibuprofen, discussed supportive care including heat and topicalsWi ll start PTPt has referral to Maureen Holliday, he will contact them to schedulePt to contact the office for any worsening symptoms Health Concerns Section Related Observation LastModified by Organization Detai ls LastModified Time None Recorded Concern Status LastModified by Organization Details LastModified Time None Recorded Advance Directives Directive None Recorded Payers Encounter Date Sequence Insurance Name Policy Number Policy Quezada Covered Member ID Quezada Member ID Guarantor Name 01/08/2022 1 [facility] [place] [id number] Sally Kasper [id number] Kasper 04/21/2022 1 [place] [facility] [place] [id number] Sally E Kasper [id number] Kasper 04/06/2023 1 [place] [facility] [place] [id number] Sally E Kasper [id number] [address] Kasper 11/15/2023 1 [place] [facility] [place] [id number] Sally E Kasper [id number] Kasper 04/27/2024 1 [place] [facility] [place] [id number] Sally E Kasper [id number] Kasper Notes Date Note Type Note Provider Name and Address Organization Details Recorded Time 01/08/2022 text/html 01/08/22Today px on Lt side of neck, no issues w swallowing Some days - px wakes up and it is 2/10 Px Worse as day progresses. can go up to 7/10Px is intermittent.NoYawning causes cramping.Feels like throat might contract.No new hobbies, injuries or stresstried tylenolBooster last weekUnemployeed. Pt denied fever, cough, fatigue, congestion and runny nose. Pt denied any injury to his jaw/neck. Smoking- discd wants to try johnsonzencarl Montgomery MD [address] [place] [address], [phone], [facility] [place], [place] 01/10/2022 14:21:34 04/21/2022 text/html Physical Exam/MaleReported bypatient.PHAPatient is here for a Wellness Visit. He describes his health status as good. Patient's health is the same as last year.Risk Assessment and Lifestyle Change Counseling 18-50Reported bypatient.Coronary Artery Disease Risk Assesment:No Family history of coronary artery disease; No personal history of diabetes; No history of peripheral vascular disease, AAA, or carotid disease; No personal history of coronary artery disease Breast Cancer Risk Assessment:No family history of breast cancer; No history of breast cancer or dcis Lung Cancer Risk Assessment:Current smoker Cognitive/Behavioral Risk Assessment:Personal history of mental illness Safety Risk Assessment:No evidence of abuse/neglect Diet:Counseled about appropriate portion size; Counseled about eating a diet low in trans and saturated fats and high in fiber, fruits and vegetables; Counseled about appropriate calcium intake and good dietary sources of calcium.; Counseled about the importance of maintaining a positive calcium balance and taking 1000 iu Vitamin D daily.; Counseled about decreasing carbohydrates; Counseled about decreasing salt in diet; Discussed the value of a Mediterranean diet, and eating more fruits and vegetables Exercise counseling:Discussed the importance of daily physical activity; Discussed the importance of weight bearing exercise Safety:Counseled about protecting skin from the sun and lowering the risk of skin cancer; Counseled about avoiding excessive and unsafe alcohol intake; An audit alcohol screening was performed and scored. Patient was asked about alcohol use. Advised about risks of alcohol and personal risk was assessed. Patient agreed to plan and given information about available resources if needed. Discussion including screening and scoring greater than 7.5 minutes. Family Planning:Desires pregnancya/vmg-smoking [id number] bypatient.Notes:quit 12/2021.restarted black wednesday in Feb- 04/20 ppd - consistent sincewellbutrin in past - unsure if it really helpedchantix years ago - caused insane dreams , felt sick if didn't eat once up in the morning 04/21/22-37 y/o male presents for wellness visit.reports doing generally well overall, felt burnt out last year, better this yearnew kitten a few weeks agojoint pain prominent daily - tried to keep up with PT for the elbow but got expensive, considering it again, trying to get into routine going forwardalso in therapy x last few months - putting money toward this right now? maintenance valtrex - trying to get , hx oral and genital herpes outbreaks Margi Bianchi MD [address] [place] [address], [phone], [facility] [place], [place] 04/21/2022 13:27:30 04/06/2023 text/html 04/06/23 Triage Note Spoke with Sally-SO on [employer] who reports above. S+S started with sinus pressure/headache 04/03. Neg covid home test 04/04. Pt started with red dotted maybe raised rash to chest, neck and back that started mid day yesterday. No fever or other S+S noted A bit itchy , rash on neck , back Quinton Montgomery MD [address] [place] [address], [phone], [facility] [place], [place] 04/06/2023 15:43:34 11/15/2023 text/html Physical Exam/MaleReported bypatient.PHAPatient is here for a Wellness Visit. He describes his health status as good. Patient's health is the same as last year.Risk Assessment and Lifestyle Change Counseling 18-50Reported bypatient.Coronary Artery Disease Risk Assesment:No Family history of coronary artery disease; No personal history of diabetes; No history of peripheral vascular disease, AAA, or carotid disease; No personal history of coronary artery disease Breast Cancer Risk Assessment:No family history of breast cancer; No history of breast cancer or dcis Lung Cancer Risk Assessment:Current smoker Cognitive/Behavioral Risk Assessment:Personal history of mental illness Safety Risk Assessment:No evidence of abuse/neglect Diet:Counseled about appropriate portion size; Counseled about eating a diet low in trans and saturated fats and high in fiber, fruits and vegetables; Counseled about appropriate calcium intake and good dietary sources of calcium.; Counseled about the importance of maintaining a positive calcium balance and taking 1000 iu Vitamin D daily.; Counseled about decreasing carbohydrates; Counseled about decreasing salt in diet; Discussed the value of a Mediterranean diet, and eating more fruits and vegetables Exercise counseling:Discussed the importance of daily physical activity; Discussed the importance of weight bearing exercise Safety:Counseled about avoiding excessive and unsafe alcohol intake Family Planning:Desires pregnancya/vmg-smoking [id number] bypatient.Notes:quit 12/2021.restarted wednesday in Feb- 04/20 ppd - consistent sincewellbutrin in past - unsure if it really helpedchantix years ago - caused insane dreams , felt sick if didn't eat once up in the morning 11/15/23- periodic use, feels the lozenges help but the brand is never consistent 11/15/23- [place] overall[place] - periodic usetherapy going well, biweeklywhole life notes urgency in bladder, needing to go quickly, has entire relief after going.back pain/spasms ongoing 04/21/22-37 y/o male presents for wellness visit.reports doing generally well overall, felt burnt out last year, better this yearnew kitten a few weeks agojoint pain prominent daily - tried to keep up with PT for the elbow but got expensive, considering it again, trying to get into routine going forwardalso in therapy x last few months - putting money toward this right now? maintenance valtrex - trying to get , hx oral and genital herpes outbreaks Imer Kemp MD [address] [place], [phone], [facility] [place], [place] 11/16/2023 21:35:14 04/27/2024 text/html 04/27/[age]yo pre sents for back painPt here c/o back pain, pt states has had back pain forever Pt reports the last weekend of March was standing for a long period of time at a show, the next day the back got worsePt discussed with PCP and has ortho referralHas been trying to do some stretchingHas been taking ibuprofen, has tried an old prescription of Gabapentin which helps a bit, at night has been using flexerilMassage helps, has used heat and lidocaine patch as Ciscos feels it in the hip joints now as wellHas done PT in the past, pt reports it is very expensiveNo fever/chills, bowel/bladder incontinence, saddle anesthesia Pt has also had cold symptoms x2 weeks, congestion, and cough.COVID test at home is negativeSymptoms seem to be clearing up Has been decreasing smoking, has been using lozenges to help Mandy Gaspar [address] [place], [phone], [facility] [place], [place] 04/27/2024 09:00:46
== END 2024-06-30 09:53 | disposition home or self-care (01) ==
LOC: HO.HOS 09:25
PROVIDERS: Visit Provider Physical Medicine & Rehabilitation
DX: M54.6 Pain in thoracic spine (principal); G89.29 Other chronic pain
CPT/HCPCS: 99203

== ENCOUNTER 2024-06-30 09:24 | Outpatient (REF) | payer BC, SELFPAY ==
--- NOTE | ~2024-06-30 | XR_ITS ---
CLINICAL HISTORY: M54.6 - Pain in thoracic spine 3 views thoracic spine Comparison: None Findings: Normal alignment. No acute fractures or dislocation. No significant degenerative change. IMPRESSION: No acute findings. This document has been electronically signed by: Francis Degroot MD on 07/01/2024 09:13:42
== END 2024-06-30 09:25 | disposition home or self-care (01) ==
LOC: HO.HOSX 09:24
PROVIDERS: Visit Provider Physical Medicine & Rehabilitation
DX: M54.6 Pain in thoracic spine (principal)
CPT/HCPCS: 72072

== ENCOUNTER → 2024-06-30 10:11 | Outpatient (BNV) | payer BC, SELFPAY | PROVIDERS: Visit Provider Radiology Diagnostic Radiology | DX: M54.6 Pain in thoracic spine (principal) | CPT/HCPCS: 72072 ==